=== PATIENT | male | born 2000 | race Caucasian/White ===

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

== ENCOUNTER 2021-09-14 17:52 | Emergency (ER) | payer BC ==
[2021-09-14] MEDS ORDERED: DEXAMETHASONE SOD PHOSPHATE 10 MG/ML 1 ML VIAL IM STA (19:43)
--- NOTE | 2021-09-14 19:59 | ED ---
ENT HPI - General Chief complaint: ENT Stated complaint: Sore throat,GIANLUCA Time Seen by Provider: 09/14/21 19:27 Source: patient, RN notes reviewed Mode of arrival: ambulatory Limitations: no limitations - History of Present Illness Initial comments: Patient presents sore throat, runny nose, postnasal drainage for the past 2 days. His significant other also has similar symptoms. No headache, no fever or chills, no changes in vision or hearing, no neck pain, no chest pain or shortness of breath, no abdominal pain, no nausea or vomiting, no changes in urination or bowel movements, no numbness or tingling, no extremity pain, no skin rashes or lesions. MD complaint: sore throat Onset/Timin -: days(s) Location: throat Severity: moderate Severity scale (1-10): 6 Quality: dull Consistency: constant Improves with: none Worsens with: swallowing Associated Symptoms: pain with swallowing, rhinorrhea, other (Runny nose, postnasal drainage) - Related Data Previous Rx's Medication Instructions Recorded Acetaminophen [Tylenol] 500 mg PO Q4-6H PRN #24 tab 09/14/21 Ibuprofen [Motrin] 600 mg PO Q8HR PRN #30 tab 09/14/21 Allergies Allergy/AdvReac Type Severity Reaction Status Date / Time No Known Allergies Allergy Verified 09/14/21 19:38 Review of Systems ROS Statement: Those systems with pertinent positive or pertinent negative responses have been documented in the HPI. ROS Other: All systems not noted in ROS Statement are negative. Past Medical History Past Medical History: No Reported History History of Any Multi-Drug Resistant Organisms: None Reported Past Surgical History: No Surgical Hx Reported Past Psychological History: No Psychological Hx Reported Smoking Status: Never smoker Past Alcohol Use History: None Reported Past Drug Use History: None Reported General Exam Limitations: no limitations General appearance: alert, in no apparent distress Head exam: Present: atraumatic, normocephalic, normal inspection Eye exam: Present: normal appearance, PERRL, EOMI. Absent: scleral icterus, conjunctival injection, periorbital swelling ENT exam: Present: mucous membranes moist, TM's normal bilaterally, normal external ear exam Expanded Mouth exam: Present: normal external inspection Teeth exam: Present: normal inspection Throat exam: other (Clear postnasal drainage with cobblestoning. Mild posterior pharyngeal erythema, no airway compromise). negative: normal inspection, tonsillar erythema, tonsillomegaly, tonsillar exudate, R peritonsillar mass, L peritonsillar mass Neck exam: Present: normal inspection. Absent: tenderness, meningismus, lymphadenopathy Respiratory exam: Present: normal lung sounds bilaterally. Absent: respiratory distress, wheezes, rales, rhonchi, stridor Cardiovascular Exam: Present: regular rate, normal rhythm, normal heart sounds. Absent: systolic murmur, diastolic murmur, rubs, gallop, clicks GI/Abdominal exam: Present: soft, normal bowel sounds. Absent: distended, tenderness, guarding, rebound, rigid Extremities exam: Present: normal inspection, full ROM, normal capillary refill. Absent: tenderness, pedal edema, joint swelling, calf tenderness Back exam: Present: normal inspection Neurological exam: Present: alert, oriented X3, CN II-XII intact Psychiatric exam: Present: normal affect, normal mood Skin exam: Present: warm, dry, intact, normal color. Absent: rash Course Vital Signs 09/14/21 09/14/21 17:57 20:02 Temperature 98.1 F 98.4 F Pulse Rate 84 88 Respiratory 16 18 Rate Blood Pressure 101/62 112/73 O2 Sat by Pulse 100 100 Oximetry Medical Decision Making - Medical Decision Making Patient presents with sore throat. Most likely related to postnasal drainage. Does not appear to be consistent with peritonsillar abscess or deep space tissue infection. COVID-19, influenza, streptococcal testing were all negative. Patient was given a dose of dexamethasone. We'll treat conservatively with ibuprofen and acetaminophen. All questions answered. Patient concurs with the treatment plan. Patient was told to return to the ER for any signs or symptoms worsen. Told to return immediately if any other problems arise. All questions answered. Treatment plan discussed. Patient in agreement Every effort has been made to ensure accuracy of this dictation. However, due to the limitations of electronic medical records and dictation devices, errors in charting still occur. - Lab Data Lab Results 09/14/21 09/14/21 09/14/21 Range/Units 18:04 18:04 19:39 Coronavirus (PCR) Not Detected (Not Detectd) Influenza Type A RNA Not Detected (Not Detectd) Influenza Type B (PCR) Not Detected (Not Detectd) Group A Strep Rapid Negative (Negative) Disposition Clinical Impression: Viral URI, Sore throat (viral), Post-nasal drainage Disposition: HOME SELF-CARE Condition: Good Instructions (If sedation given, give patient instructions): Upper Respiratory Infection (ED) Additional Instructions: Follow-up with your regular physician as directed. Return to the ER immediately if any symptoms worsen, new symptoms arise, or any other problems develop. Prescriptions: Ibuprofen [Motrin] 600 mg PO Q8HR PRN #30 tab PRN Reason: Pain Acetaminophen [Tylenol] 500 mg PO Q4-6H PRN #24 tab PRN Reason: Pain Is patient prescribed a controlled substance at d/c from ED?: No Referrals: Gary Eastman DO [Primary Care Provider] - 1-2 days
[2021-09-14 20:07] VITALS: BP 112/73; PULSE 88; RESP 18; TEMP 98.4
== END 2021-09-14 20:43 | disposition home or self-care (01) ==
LOC: EC 17:52
DX: J06.9 Acute upper respiratory infection, unspecified (principal); J02.9 Acute pharyngitis, unspecified; Z20.822 Contact with and (suspected) exposure to COVID-19
CPT/HCPCS: 87081; 87430; 87502; 87635; 99283; 96372; J1100